=== PATIENT | male | born 1970 | race Caucasian/White ===

== ENCOUNTER 2022-01-24 08:13 | Emergency (ER) | payer OTHER, SELFPAY ==
[2022-01-24 08:18] VITALS: BP 133/88; PULSE 72; RESP 18; TEMP 36.7; O2SAT 98
--- NOTE | 2022-01-24 09:41 | ED.EYEPROB ---
HPI - Eye Problem General Chief complaint: Eye Problems Stated complaint: eye swelling Time Seen by Provider: 01/24/22 09:12 Source: patient Mode of arrival: ambulatory Limitations: no limitations History of Present Illness HPI Narrative: This is a 51-year-old male that presents to the emergency department for right eyelid swelling x2 days. Reports he woke up this morning and it had acutely worsened. Reports some mild blurry vision in the right eye. He does not wear contacts or glasses. No injuries to the eye. Denies fever, eye pain, drainage from the eye, or vomiting. Related Data Allergies Allergy/AdvReac Type Severity Reaction Status Date / Time No Known Allergies Allergy Verified 01/24/22 08:21 Review of Systems Review of Systems: CONSTITUTIONAL: Denies fever EYES: Reports visual changes. Denies redness, or discharge. All systems reviewed & are unremarkable except as noted in HPI and below PMFSH Past Medical History Medical History (Updated 01/24/22 @ 09:47 by Carmen Ramires PA-C) History of atrial fibrillation History of hyperlipidemia Social History Social History (Updated 01/24/22 @ 09:42 by Carmen Ramires PA-C) Smoking status: Never smoker Exam Narrative: GENERAL: Well-appearing, well-nourished, and in no acute distress. HEAD: Normocephalic, atraumatic. EYES: PERRLA and EOMI. Eyelid everted, no foreign bodies noted. No conjunctival injection or drainage. Visual acuity right eye 20/40, left eye 20/25 CHEST: Clear to auscultation. No respiratory distress. No wheezes rales or rhonchi HEART: Regular rate and rhythm. No murmur heard. Normal peripheral pulses. EXTREMITIES: Normal range of motion. No edema. SKIN: Warm, dry, no rash. NEURO: No focal deficits. Alert and oriented x3. PSYCH: Normal mood and affect Course Vital Signs Vital signs: Vital Signs Temperature 98.1 F 01/24/22 08:18 Pulse Rate 72 01/24/22 08:18 Respiratory Rate 18 01/24/22 08:18 Blood Pressure 133/88 01/24/22 08:18 Pulse Oximetry 98 01/24/22 08:18 Temperature 98.1 F 01/24/22 08:18 Pulse Rate 72 01/24/22 08:18 Respiratory Rate 18 01/24/22 08:18 Blood Pressure 133/88 01/24/22 08:18 Pulse Oximetry 98 01/24/22 08:18 MDM - Eye Problem MDM Narrative Medical decision making narrative: Patient presents to the emergency department for redness and swelling of the right eyelid noted over the last 2 days. He reports some mild blurry vision in the eye. No concerning visual changes. No fevers. The eye itself appears normal. He is not having any pain in the eye. He is neurovascularly intact. Patient will be started on oral antibiotics and antibiotic eye ointment for preseptal cellulitis. He was instructed to have close follow-up with his primary doctor. He was given warnings to return to the ER Critical Care Time Critical Care Time Critical Care Time: No Discharge Plan Discharge Clinical Impression: Periorbital cellulitis Qualifiers: Laterality: right Qualified Code(s): L03.213 - Periorbital cellulitis Patient Disposition: Home, Self-Care Condition: Stable Instructions: Antibiotic Form, Periorbital Cellulitis in Adults (ED) Additional Instructions: Return to the emergency department if you experience fever, redness of your eye, abnormal drainage of your eye, worsening redness and swelling around your eye, worsening visual changes, vomiting, or any other symptoms that are concerning to you Apply erythromycin ointment 4 times daily for 1 week. Take Augmentin as prescribed Follow-up with your primary care doctor for re-evaluation in the next couple of days Prescriptions: New amoxicillin-pot clavulanate 875-125 mg tablet 1 tablet PO Q12H 7 Days Qty: 14 RF: 0 Follow-up/Referrals: Immanuel Walls MD [Primary Care Provider] -
[2022-01-24] MEDS: ERYTHROMYCIN OPHTH OINTMENT 1 GM TUBE 1 APPLIC RIGHT EYE (09:48)
[2022-01-24 09:54] VITALS: PULSE 77; RESP 18; O2SAT 98
== END 2022-01-24 09:55 | disposition home or self-care (01) ==
PROVIDERS: Emergency Provider Emergency Medicine; PCP Internal Medicine Interventional Cardiology
DX: L03.213 Periorbital cellulitis (principal); I48.91 Unspecified atrial fibrillation; E78.5 Hyperlipidemia, unspecified
CPT/HCPCS: 99283; A9270